=== PATIENT | female | born 2000 | race Two or more races ===

== ENCOUNTER 2023-02-24 18:07 | Emergency (ER) | payer BC ==
[~2023-02-24] VITALS: Ht 154.9 cm; Wt 65.8 kg
[2023-02-24] MEDS ORDERED: FLUT16SP16 BNOSTRILS (19:18)
[2023-02-24] MEDS ORDERED: BENZ-13 PO (19:18)
[2023-02-24 19:25] VITALS: BP 128/75; TEMP 98.7; O2SAT 100
== END 2023-02-24 19:25 | disposition home or self-care (01) ==
LOC: ER 18:22
DX: R05.9 Cough, unspecified (principal); Z60.2 Problems related to living alone
CPT/HCPCS: 71045-TC